=== PATIENT | male | born 1965 | race Caucasian/White ===

== ENCOUNTER 2017-07-30 20:34 | Emergency (ER) | payer BC ==
[~2017-07-30] VITALS: Ht 182.9 cm; Wt 99.0 kg
[2017-07-30 21:01] LABS: HEMATOCRIT 35.2 % (38.0-50.0); MCH 30.6 PG (29.0-34.0); MCHC 34.4 G/DL (30.0-36.0); MCV 88.9 FL (86-99); MEAN PLAT.VOLUME 9.8 uM^3 (9.0-12.4); PLATELET COUNT 308 K/uL (156-360); RBC DIS.WIDTH-CV 13.8 % (11.8-14.6); RBC DIS.WIDTH-SD 45.1 % (39-53); RED BLOOD COUNT 3.96 M/uL (4.00-5.50); WHITE BLOOD COUNT 12.3 K/uL (4.1-10.2)
[2017-07-30 21:09] LABS: CHLORIDE 105 mEq/L (99-109); POTASSIUM 3.8 mEq/L (3.7-5.4); SODIUM 137 mEq/L (136-147)
[2017-07-30 21:12] LABS: GLUCOSE 110 mg/dL (70-99)
[2017-07-30 21:13] LABS: ANION GAP 11 MEQ/L (2-14); TOTAL BILIRUBIN 0.5 mg/dL (0.0-1.0)
[2017-07-30 21:15] LABS: ALKALINE PHOSPHATASE 53 IU/L (3-129); GFR ESTIMATE (CALCULATED) 46 mL/min/ (58.99-99999)
[2017-07-30 21:16] LABS: UREA NITROGEN (BUN) 21 mg/dL (9-23)
[2017-07-30 21:50] LABS: ADD MIUA? YES; BILIRUBIN NEGATIVE; BLOOD NEGATIVE; GLUCOSE (STRIP) NEGATIVE; KETONES NEGATIVE; LEUKOCYTES NEGATIVE; NITRITE NEGATIVE; PROTEIN (STRIP) NEGATIVE; SPECIFIC GRAVITY 1.027 (1.000-1.030); UROBILINOGEN 0.2 MG/DL (0.2-1.0)
[2017-07-30 21:51] LABS: COLOR AMBER ((YELLOW))
[2017-07-30] MEDS ORDERED: ASPIR 8181 M1 PO (21:52)
[2017-07-30 21:53] LABS: BACTERIA NONE SEEN /HPF; EPITHELIAL CELLS NONE SEEN /HPF; MUCUS TRACE /LPF; RED BLOOD CELLS 0-5 /HPF (0-5); UCUL ADDED? NO; WHITE BLOOD CELLS 0-5 /HPF (0-5)
[2017-07-30] MEDS ORDERED: MOTRIN600 MG PO (22:59)
[2017-07-30] MEDS ORDERED: PERCOCET 5/31 TABLET PO (22:59)
[2017-07-30] MEDS ORDERED: ZOFRAN4 MG PO (22:59)
[2017-07-30 23:09] VITALS: BP 121/70
== END 2017-07-30 23:13 | disposition home or self-care (01) ==
LOC: EME 20:34
DX: N20.1 Calculus of ureter (principal); R31.9 Hematuria, unspecified
CPT/HCPCS: 74176; 80053; 81003; 85027; 99281; 99285; J1885; J7030